=== PATIENT | female | born 1975 | race Two or more races ===

== ENCOUNTER 2020-10-16 22:42 | Emergency (ER) | payer OTHER ==
[~2020-10-16] VITALS: Ht 154.9 cm; Wt 77.3 kg
[2020-10-16 22:46] VITALS: BP 119/75
[2020-10-17] MEDS ORDERED: ACETAMINOPHEN 500 MG TABLET PO ONE (00:45)
[2020-10-17] MEDS ORDERED: KETOROLAC TROMETHAMINE 30 MG/ML VIAL IM ONE (00:45)
[2020-10-17] MEDS ORDERED: LIDOCAINE 5% TRANSDERMAL PATCH TD ONE (00:45)
== END 2020-10-17 02:43 | disposition home or self-care (01) ==
LOC: EMS 22:42
DX: M75.31 Calcific tendinitis of right shoulder (principal)
CPT/HCPCS: 73030; 96372; 99283; J1885